=== PATIENT | male | born 1960 | race African-American/Black ===

== ENCOUNTER 2017-06-03 21:49 | Inpatient (IN) ==
[2017-06-04] MEDS ORDERED: PROMETHAZINE 25 MG TABLET PO PRN (00:20)
[2017-06-04] MEDS ORDERED: MORPHINE 2 MG/1 ML SYRINGE IV PRN (00:20)
[2017-06-04] MEDS ORDERED: ONDANSETRON 4 MG/2 ML VIAL IV PRN (00:20)
[2017-06-04] MEDS ORDERED: PROMETHAZINE 25 MG/1 ML VIAL IM PRN (00:20)
[2017-06-04] MEDS ORDERED: ACETAMINOPHEN 325 MG TABLET PO PRN (00:20)
[2017-06-04] MEDS ORDERED: LORazepam 2 MG/1 ML VIAL IV PRN (00:24)
[2017-06-04] MEDS: ENOXAPARIN 40 MG/0.4 ML SYRINGE SUBCUT SCH ×2 (03:38→22:14)
[2017-06-04] MEDS: SODIUM CHLORIDE 0.9% 1,000 ML IV SCH ×2 (03:40→13:57)
[2017-06-04 05:06] LABS: Basophils # 0.1 10*3/uL (0.0-0.2); Eosinophils # 0.2 10*3/uL (0.0-0.87); Eosinophils % 4.1 % (0.00-10.9); Hematocrit 42.1 VOL% (42.0-52.0); Hemoglobin 13.9 GM/DL (14.0-18.0); Immature Granulocytes % 0.3 %; Immature Granulocytes Absolute 0.02 #; Lymphocytes # 2.1 10*3/uL (1.4-4.0); Lymphocytes % 35.5 % (21.2-54.2); Mean Corpuscular Hemoglobin 24 PG (27-34); Mean Corpuscular Volume 73.7 FL (87-102); Mean Platelet Volume 9.4 FL (9.6-12.0); Monocytes # 0.6 10*3/uL (0.11-0.8); Monocytes % 10.5 % (1.7-12.7); Neutrophils # 2.8 10*3/uL (1.4-7.4); Neutrophils % 48.6 % (38.7-73.9); Platelet Count 258 T/CUMM (130-400); Red Blood Count 5.71 MC/CUMM (3.8-5.5); Red Cell Distribution Width 15.2 % (9.3-17.3); White Blood Count 5.8 T/CUMM (4-12)
[2017-06-04 05:40] LABS: Albumin 3.6 G/DL (3.4-5.0); Bilirubin,Total 0.7 MG/DL (0.2-1.0); Calcium 9.3 MG/DL (8.5-10.1); Osmolality,Calculated 272.1 MOS/KG (273-304); Potassium 5.1 MMOL/L (3.5-5.1); Total Protein 7.6 G/DL (6.4-8.3)
[2017-06-04] MEDS: THIAMINE 100 MG TABLET PO SCH (08:49)
[2017-06-04] MEDS: MULTIVITAMIN (CENTRUM) TABLET PO SCH (08:49)
[2017-06-04] MEDS: FOLIC ACID 1 MG TABLET PO SCH (08:49)
[2017-06-04] MEDS: PANTOPRAZOLE 40 MG TABLET PO SCH (08:49)
[2017-06-04] MEDS: DOCUSATE SODIUM 100 MG CAPSULE PO SCH ×2 (08:49→22:14)
[2017-06-05 06:31] LABS: Basophils # 0.1 10*3/uL (0.0-0.2); Basophils % 1.3 % (0.0-0.8); Eosinophils # 0.3 10*3/uL (0.0-0.87); Eosinophils % 8.1 % (0.00-10.9); Hematocrit 35.1 VOL% (42.0-52.0); Hemoglobin 11.4 GM/DL (14.0-18.0); Immature Granulocytes % 0.3 %; Immature Granulocytes Absolute 0.01 #; Lymphocytes # 1.7 10*3/uL (1.4-4.0); Lymphocytes % 42.2 % (21.2-54.2); Mean Corpuscular HGB Conc 32.5 GM/DL (32-36); Mean Corpuscular Hemoglobin 24 PG (27-34); Mean Corpuscular Volume 75.2 FL (87-102); Mean Platelet Volume 9.2 FL (9.6-12.0); Monocytes # 0.4 10*3/uL (0.11-0.8); Monocytes % 10.6 % (1.7-12.7); Neutrophils # 1.5 10*3/uL (1.4-7.4); Neutrophils % 37.5 % (38.7-73.9); Platelet Count 209 T/CUMM (130-400); Red Blood Count 4.67 MC/CUMM (3.8-5.5); Red Cell Distribution Width 14.8 % (9.3-17.3)
[2017-06-05 06:59] LABS: Albumin 3.1 G/DL (3.4-5.0); Bilirubin,Total 0.7 MG/DL (0.2-1.0); Calcium 8.2 MG/DL (8.5-10.1); Eosinophils 8 % (0-10); Hypochromasia 1+; Lymphocytes 45 % (20-55); Microcytosis 1+; Osmolality,Calculated 268.1 MOS/KG (273-304); Platelet Estimate Normal; Potassium 4.3 MMOL/L (3.5-5.1); Segmented Neutrophils 43 % (50-85); Total Cells Counted 100; Total Protein 6.1 G/DL (6.4-8.3)
[2017-06-05] MEDS: FOLIC ACID 1 MG TABLET PO SCH (09:30)
[2017-06-05] MEDS: THIAMINE 100 MG TABLET PO SCH (09:30)
[2017-06-05] MEDS: MULTIVITAMIN (CENTRUM) TABLET PO SCH (09:30)
[2017-06-05] MEDS: DOCUSATE SODIUM 100 MG CAPSULE PO SCH (09:30)
[2017-06-05] MEDS: PANTOPRAZOLE 40 MG TABLET PO SCH (09:30)
[2017-06-05 17:30] VITALS: BP 132/84
== END 2017-06-05 17:55 | disposition home or self-care (01) | DRG 388 ==
LOC: N.3E 23:02
PROVIDERS: ADMIT Internal Medicine; ATTEND Internal Medicine